=== PATIENT | female | born 1960 ===

== ENCOUNTER 2017-05-06 06:34 | Inpatient (IN) | payer BC ==
[~2017-05-06 06:34] MED LIST: Ketorolac 30 MG/ML SDV IVPUSH SCH; Scopolamine 1.5 MG Transdermal Patch TRDERM SCH; oxyCODONE ER 20 MG TAB.ER PO SCH
[2017-05-06] MEDS: Lactated Ringers 1,000 ML IV SCH ×2 (07:15→12:03)
[2017-05-06] MEDS ORDERED: Lidocaine 2% 5 ML SDV ONE (07:23)
[2017-05-06] MEDS ORDERED: Propofol 200 MG/20 ML SDV ONE ×2 (07:23→09:38)
[2017-05-06] MEDS ORDERED: fentaNYL 100 MCG/2 ML SDV ONE (07:24)
[2017-05-06] MEDS ORDERED: ePHEDrine 50 MG/ML SDV ONE (07:24)
[2017-05-06] MEDS ORDERED: Ondansetron 4 MG/2 ML SDV ONE ×2 (07:24→08:46)
[2017-05-06] MEDS ORDERED: Midazolam 1 MG/ML 2 ML SDV ONE (07:24)
[2017-05-06] MEDS: Acetaminophen 1,000 MG in Premix Bag 1 BAG IV SCH ×6 (07:30→18:35)
[2017-05-06] MEDS ORDERED: Famotidine 20 MG/2 ML SDV IVPUSH ONE (07:32)
[2017-05-06] MEDS ORDERED: oxyCODONE ER 10 MG TAB.ER PO ONE (07:33)
[2017-05-06] MEDS ORDERED: ceFAZolin 1 GM in Premix Bag 1 BAG IV SCH (08:00)
[2017-05-06] MEDS ORDERED: Ropivacaine 49.25 ML, Ketorolac 30 MG, EPINEPHrine 0.5 MG, cloNIDine 80 MCG in Sodium C... INJECT SCH ×2 (08:00→08:15)
[2017-05-06] MEDS ORDERED: Tranexamic Acid 4,000 MG in Sodium Chloride 0.9% 100 ML IV SCH (08:00)
--- NOTE | 2017-05-06 08:09 | PCM.PREANE ---
Preanesthetic Assessment - Procedure Proposed Procedure: Bilateral total knee arthroplasty - Anesthesia/Transfusion/Family Hx Anesthesia History: Prior Anesthesia Without Reaction Family History of Anesthesia Reaction: No Transfusion History: No Prior Transfusion(s) - Review of Systems General: No Symptoms Pulmonary: No Symptoms Cardiovascular: No Symptoms, Other (high cholesterol) Gastrointestinal: No Symptoms Neurological: Difficulty Walking (pain in both knees) Other: Reports: None - Physical Assessment NPO Status Date: 05/05/17 NPO Status Time: 22:00 Height: 5 ft 3 in Weight: 134 lb ASA Class: 2 Mental Status: Alert & Oriented x3 Airway Class: Mallampati = 2 Dentition: Reports: Normal Dentition, [place](s) Thyro-Mental Finger Breadths: 3 Mouth Opening Finger Breadths: 3 ROM/Head Extension: Full Lungs: Clear to Auscultation, Normal Respiratory Effort Cardiovascular: Regular Rate, Regular Rhythm, No Murmurs, Other (split S2) - Lab Values: Laboratory Last Values Blood Type B NEGATIVE 05/06/17 07:00 Antibody Screen NEGATIVE 05/06/17 07:00 - Allergies Allergies/Adverse Reactions: Allergies Allergy/AdvReac Type Severity Reaction Status Date / Time hydromorphone [From Dilaudid] Allergy Respiratory Verified 05/02/17 12:08 Distress morphine Allergy Respiratory Verified 05/02/17 12:08 Distress - Blood Blood Available: Yes Product(s) Available: PRBC (T and S) - Anesthesia Plan Free Text/Narrative:: known low tolerance for narcotics effects - Acknowledgements Anesthesia Type Planned: Spinal (possible LMA ) Pt an Appropriate Candidate for the Planned Anesthesia: Yes Alternatives and Risks of Anesthesia Discussed w Pt/Guardian: Yes Pt/Guardian Understands and Agrees with Anesthesia Plan: Yes PreAnesthesia Questionnaire Cardiovascular History: Reports: High Cholesterol Gastrointestinal History: Reports: None Genitourinary History: Reports: Renal Calculus Other Genitourinary History: passed SHIP BOAT OR BARGE MATE History: Reports: Endometriosis, Musculoskeletal History: Reports: Arthritis, Fracture Other Musculoskeletal History: hx of fx arm Dermatologic History: Reports: Eczema - Past Surgical History GI Surgical History: Reports: Appendectomy Female Surgical History: Reports: Hysterectomy, Other (See Below) Other Female Surgeries/Procedures: multiple laparoscopies for endometriosis and In-Vitro, Laparotomy, TVT - SUBSTANCE USE Smoking Status *Q: Never Smoker Recreational Drug Use History: No - HOME MEDS Home Medications: Home Meds Betamethasone Dipropionate [Diprosone 0.05% Crm] 1 dose TOP ASDIRECTED PRN 05/02 [History] Estradiol [Vivelle-Dot] 0.05 mg PO ASDIRECTED 05/02/17 [History] Rosuvastatin Calcium 10 mg PO DAILY 05/02/17 [History] - CURRENT (IN HOUSE) MEDS Current Meds: Current Medications Famotidine (Pepcid) 40 mg PO DAILY [facility] Acetaminophen 1,000 mg/ Premix 100 mls @ 400 mls/hr IV ONARRIVE DAVIDSON Cefazolin Sodium/Dextrose 1 gm (/ Premix) 50 mls @ 100 mls/hr IV ONCALL DAVIDSON Ropivacaine 49.25 ml/Ketorolac Tromethamine 30 mg/Epinephrine HCl 0.5 mg/ Clonidine HCl 80 mcg/ Sodium Chloride 100 mls @ 50 mls/min INJECT ASDIRECTED DAVIDSON Lactated Ringer's (Ringers, Lactated) 1,000 mls @ 100 mls/hr IV ASDIRECTED DAVIDSON Tranexamic Acid 4,000 mg/ (Sodium Chloride) 140 mls @ 600 mls/hr IV ASDIRECTED DAVIDSON Ropivacaine 49.25 ml/Ketorolac Tromethamine 30 mg/Epinephrine HCl 0.5 mg/ Clonidine HCl 80 mcg/ Sodium Chloride 100 mls @ 50 mls/min INJECT ASDIRECTED DAVIDSON Ketorolac Tromethamine (Toradol) 30 mg IVPUSH ONARRIVE DAVIDSON Oxycodone HCl (Oxycontin) 20 mg PO ONARRIVE DAVIDSON Scopolamine (Transderm-Scop) 1.5 mg TRDERM ONARRIVE [facility] Discontinued Medications Ephedrine Sulfate (Ephedrine Sulfate) Confirm Administered Dose 100 mg .ROUTE .STK-MED ONE Stop: 05/06/17 07:25 Famotidine (Pepcid) 40 mg IVPUSH ONETIME ONE Stop: 05/06/17 07:33 Fentanyl (Sublimaze) Confirm Administered Dose 200 mcg .ROUTE .STK-MED ONE Stop: 05/06/17 07:25 Lidocaine (Xylocaine-Mpf 2%) Confirm Administered Dose 10 ml .ROUTE .STK-MED ONE Stop: 05/06/17 07:24 Midazolam HCl (Versed 1 Mg/Ml) Confirm Administered Dose 2 mg .ROUTE .STK-MED ONE Stop: 05/06/17 07:25 Ondansetron HCl (Zofran) Confirm Administered Dose 4 mg .ROUTE .STK-MED ONE Stop: 05/06/17 07:25 Oxycodone HCl (Oxycontin) 10 mg PO ONETIME ONE Stop: 05/06/17 07:34 Propofol (Diprivan 20 Ml) Confirm Administered Dose 400 mg .ROUTE .STK-MED ONE Stop: 05/06/17 07:24 Tranexamic Acid (Cyklokapron) Confirm Administered Dose 4,000 mg .ROUTE .STK- MED ONE Stop: 05/06/17 07:36
[2017-05-06] MEDS ORDERED: fentaNYL 100 MCG/2 ML SDV IVPUSH PRN (09:21)
[2017-05-06] MEDS ORDERED: diphenhydrAMINE 25 MG Cap PO PRN (10:37)
[2017-05-06] MEDS ORDERED: Bisacodyl 10 MG Supp RECTAL PRN (10:37)
[2017-05-06] MEDS ORDERED: Aluminum Hydroxide/Magnesium Hydroxide/Simethicone Susp 30 ML Cup PO PRN (10:37)
[2017-05-06] MEDS ORDERED: traMADol 50 MG Tab PO PRN (10:37)
[2017-05-06] MEDS ORDERED: Ondansetron 4 MG/2 ML SDV IV PRN (10:37)
[2017-05-06] MEDS ORDERED: oxyCODONE 5 MG Tab PO PRN (10:37)
[2017-05-06] MEDS ORDERED: ESTRADIOL 0.05 MG PO SCH (10:45)
--- NOTE | 2017-05-06 10:59 | PCM.OPNOTE ---
- General Post-Op/Procedure Note Date of Surgery/Procedure: 05/06/17 Operative Procedure(s): B TKA Post-Op Diagnosis: B knee DJD Anesthesia Technique: Moderate Sedation, Spinal Primary Surgeon: Ruth Bob Paper Wood Cutter: Laverne Freeman Paper Wood Cutter: Lissy Montoya EBL in mLs: 100 Condition: Good Free Text/Narrative:: tt=37 min L, 42 min R #[id number] Intake & Output 05/05/17 05/06/17 05/06/17 22:59 06:59 14:59 Output Total 800 Balance -800
--- NOTE | 2017-05-06 11:22 | PCM.POSTAN ---
POST ANESTHESIA ASSESSMENT - MENTAL STATUS Mental Status: Alert, Oriented - RESPIRATORY Respiratory Status: Respiratory Rate WNL, Airway Patent, O2 Saturation Stable, Supplemental Oxygen Free Text/Narrative:: nasal canula - CARDIOVASCULAR CV Status: Pulse Rate WNL, Blood Pressure Stable - GASTROINTESTINAL GI Status: No Symptoms - PAIN Pain Score: 0 - POST OP HYDRATION Hydration Status: Adequate & Stable
[2017-05-06] MEDS: Famotidine 20 MG Tab PO SCH (11:55)
--- NOTE | 2017-05-06 13:12 | OR ---
SURGEON: Ruth Bob MD DATE OF PROCEDURE: 05/06/2017 PREOPERATIVE DIAGNOSIS: Bilateral knee osteoarthritis, tricompartmental. POSTOPERATIVE DIAGNOSIS: Bilateral knee osteoarthritis, tricompartmental. PROCEDURE: Bilateral total knee arthroplasty using patient specific instrumentation. ARMAMENT MECHANIC: SOPHIA Watson and Lissy Montoya PA-C. ANESTHESIA: Spinal with sedation. ESTIMATED BLOOD LOSS: 100 mL. TOURNIQUET TIME: 37 minutes on the left and 42 minutes on the right. COMPLICATIONS: None. DVT PROPHYLAXIS: None. IMPLANTS USED: Jennifer Persona femoral component, size 4, standard (LPS) bilaterally, tibial component size D on the right and size C on the left, 32 mm all-polyethylene patella bilaterally, 10 mm all-polyethylene articular surface on the right, and 12 mm all-polyethylene articular surface on the left. INTRAOPERATIVE FINDINGS: Showed evidence of tricompartmental degenerative changes, which were most severe along the medial compartment and patellofemoral compartment with grade 4 chondromalacia. The lateral compartment showed evidence of grade 3 chondromalacia diffusely. No significant synovitis was noted. BRIEF HISTORY: Bianca is a 56-year-old female, who has had complaint of progressive bilateral knee pain. She had failed conservative treatment. Due to her lack of response to conservative treatment, it was recommended that she undergo a surgical treatment. The risks and goals of procedure were discussed with the patient and were documented preoperatively. She agreed to proceed. DESCRIPTION OF PROCEDURE: The patient was properly identified and brought to the operating room. The patient was then transferred from the operating room cart and placed on the operating table in a supine position. Anesthesia was administered by the anesthesia staff. After adequate anesthesia was obtained, a well-padded tourniquet was applied to the surgical lower extremity. De Guzman catheter was placed. The lower extremity was then prepped in standard fashion using ChloraPrep solution. It was then sterilely draped. A time-out was performed to ensure correct site and procedure. Preoperative antibiotics were given along with one gram of tranexamic acid IV. The surgical site was not marked preoperatively as the procedure was bilateral. An Esmarch was used to exsanguinate the left lower extremity and the tourniquet was inflated. An incision was made over the anterior aspect of the knee. The subcutaneous tissues were dissected down to the level of the fascia. A medial parapatellar approach to the knee was made. A portion of the infrapatellar fat pad was then excised. The distal femur was then exposed. The femoral patient-specific cutting guide was then placed. Pins were also placed. The distal femoral cutting block was placed and the distal femoral cut was made. Instrumentation was then removed. Both Whitesides' line and the epicondylar axis were then marked with electrocautery. The 4-in-1 cutting block was placed. This was placed in a slightly externally rotated position, which corresponded well with the previously drawn lines. The cutting guide was then pinned into position. An Imer wing guide was used to check the depth of resection of our anterior condylar cut and it was felt that no notching would occur. The anterior condylar cut was then made followed by the posterior condylar cut. Both the posterior chamfer and anterior chamfer cuts were then made. The cutting block was then removed along with the excess bony remnants. We then turned our attention to the tibia. The anterior cruciate ligament and posterior cruciate ligament were released and a posterior cruciate ligament retractor was placed to allow the tibia to be pulled anteriorly. The tibial patient-specific guide was then placed on the proximal tibia. This fit anatomically. The pins were then placed. The proximal tibia cutting guide was then placed and screwed into position. The proximal tibial resection was then made with care being taken to protect the patellar tendon. The bony resection was then removed. The remainder of the medial and lateral meniscus were then excised. Care was taken to protect the popliteus tendon. The tibia was then sized to the appropriate size. The distal femur was then elevated. The posterior capsule was stripped off the distal femur both medially and laterally. The posterior capsule along with the medial and lateral gutters were then injected with a standard mixture consisting of clonidine, epinephrine, Toradol, and Ropivacaine, unless any allergies were found preoperatively. The femoral component was then placed onto the distal femur in a slightly lateral position. This fit the femur well. A box cut was then made without difficulty. This was then removed. The tibial trial along with the polyethylene liner was then placed. The knee came easily into full extension and was stable to varus and valgus stressing both in full extension and flexion. Any additional releases were performed at this time. We then returned our attention to the patella. The patella was everted and towel clamps were used to hold the patella in position. It was resected to a 15 millimeter thickness. It was then sized to the appropriate size. It was prepared in the usual fashion after placing the predetermined size clamps. This was placed in a slightly superior and medial position. The clamp was then removed. The patellar trial button was placed. The knee was taken through a range of motion using the no-touch technique. The patella tracked centrally. A drop rafael was then placed to check alignment. All instruments were then removed from the knee. The tibial sizer was then placed on the tibia. The tibia was prepared in the usual fashion using the reamer and broach. This was then removed. All bony surfaces were copiously irrigated with Pulsavac solution. They were then suctioned dry. Cement was prepared on the back table in the usual manner. Once it was prepared, the bone ends were again suctioned dry. The tibia was cemented into place first. This was malleted into position. Excess cement was then cleared. The femur was then placed in a similar manner. We placed the polyethylene trial into place and the knee was brought into full extension. An axial load was placed while keeping the knee in full extension. The patella button was also cemented into position and the clamp was used to hold this in place as the cement was allowed to cure. The wound was again copiously irrigated with saline solution using a Pulsavac post tensioning ironworker. Following this 1 g of tranexamic acid was applied to the wound topically. After we had adequate curing of the cement, the knee was again taken through a range of motion. The size of the polyethylene was then determined. The polyethylene trial was then removed. The tibial tray was suctioned to make sure there was no remaining soft tissue or cement. Excess cement was cleared from around the edges of the prosthesis as well. The tourniquet was then deflated. We were able to observe for any excess bleeding and none was noted. Electrocautery was used to maintain hemostasis. The retractors were again placed and the predetermined polyethylene was then placed. This was locked into position without difficulty. The knee was again taken through a range of motion with no change from the prior exam. The fascial layer was closed with Number One Vicryl. The subcutaneous tissues were closed with 2-0 Vicryl. The skin was closed with lourdes. Xeroform gauze was placed over the wound and a bulky dressing was applied. All needle and sponge counts were correct. Right knee: An Esmarch was used to exsanguinate the right lower extremity and the tourniquet was inflated. An incision was made over the anterior aspect of the knee. The subcutaneous tissues were dissected down to the level of the fascia. A medial parapatellar approach to the knee was made. A portion of the infrapatellar fat pad was then excised. The distal femur was then exposed. The femoral patient-specific cutting guide was then placed. Pins were also placed. The distal femoral cutting block was placed and the distal femoral cut was made. Instrumentation was then removed. Both Whitesides' line and the epicondylar axis were then marked with electrocautery. The 4-in-1 cutting block was placed. This was placed in a slightly externally rotated position, which corresponded well with the previously drawn lines. The cutting guide was then pinned into position. An Imer wing guide was used to check the depth of resection of our anterior condylar cut and it was felt that no notching would occur. The anterior condylar cut was then made followed by the posterior condylar cut. Both the posterior chamfer and anterior chamfer cuts were then made. The cutting block was then removed along with the excess bony remnants. We then turned our attention to the tibia. The anterior cruciate ligament and posterior cruciate ligament were released and a posterior cruciate ligament retractor was placed to allow the tibia to be pulled anteriorly. The tibial patient-specific guide was then placed on the proximal tibia. This fit anatomically. The pins were then placed. The proximal tibia cutting guide was then placed and screwed into position. The proximal tibial resection was then made with care being taken to protect the patellar tendon. The bony resection was then removed. The remainder of the medial and lateral meniscus were then excised. Care was taken to protect the popliteus tendon. The tibia was then sized to the appropriate size. The distal femur was then elevated. The posterior capsule was stripped off the distal femur both medially and laterally. The posterior capsule along with the medial and lateral gutters were then injected with a standard mixture consisting of clonidine, epinephrine, Toradol, and Ropivacaine, unless any allergies were found preoperatively. The femoral component was then placed onto the distal femur in a slightly lateral position. This fit the femur well. A box cut was then made without difficulty. This was then removed. The tibial trial along with the polyethylene liner was then placed. The knee came easily into full extension and was stable to varus and valgus stressing both in full extension and flexion. Any additional releases were performed at this time. We then returned our attention to the patella. The patella was everted and towel clamps were used to hold the patella in position. It was resected to a 15 millimeter thickness. It was then sized to the appropriate size. It was prepared in the usual fashion after placing the predetermined size clamps. This was placed in a slightly superior and medial position. The clamp was then removed. The patellar trial button was placed. The knee was taken through a range of motion using the no-touch technique. The patella tracked centrally. A drop rafael was then placed to check alignment. All instruments were then removed from the knee. The tibial sizer was then placed on the tibia. The tibia was prepared in the usual fashion using the reamer and broach. This was then removed. All bony surfaces were copiously irrigated with Pulsavac solution. They were then suctioned dry. Cement was prepared on the back table in the usual manner. Once it was prepared, the bone ends were again suctioned dry. The tibia was cemented into place first. This was malleted into position. Excess cement was then cleared. The femur was then placed in a similar manner. We placed the polyethylene trial into place and the knee was brought into full extension. An axial load was placed while keeping the knee in full extension. The patella button was also cemented into position and the clamp was used to hold this in place as the cement was allowed to cure. The wound was again copiously irrigated with saline solution using a Pulsavac post tensioning ironworker. Following this 1 g of tranexamic acid was applied to the wound topically. After we had adequate curing of the cement, the knee was again taken through a range of motion. The size of the polyethylene was then determined. The polyethylene trial was then removed. The tibial tray was suctioned to make sure there was no remaining soft tissue or cement. Excess cement was cleared from around the edges of the prosthesis as well. The tourniquet was then deflated. We were able to observe for any excess bleeding and none was noted. Electrocautery was used to maintain hemostasis. An additional gram of tranexamic acid was given IV. The retractors were again placed and the predetermined polyethylene was then placed. This was locked into position without difficulty. The knee was again taken through a range of motion with no change from the prior exam. The fascial layer was closed with Number One Vicryl. The subcutaneous tissues were closed with 2-0 Vicryl. The skin was closed with lourdes. Xeroform gauze was placed over the wound and a bulky dressing was applied. The patient was then awakened from anesthesia and transferred back to the operating room cart. They were brought to the recovery room in stable condition. All needle and sponge counts were correct. RYAN / LESTER /[id number] MTDD
--- NOTE | 2017-05-06 14:38 | CR ---
EXAMINATION: Bilateral knees HISTORY: Knee replacement COMPARISON: 03/19/2017 TECHNIQUE: 2 views bilaterally FINDINGS/IMPRESSION: Bilateral total knee replacement hardware noted. Operative soft tissue changes a lso noted bilaterally.
[2017-05-06] MEDS: ceFAZolin 1 GM in Premix Bag 1 BAG IV SCH (16:22)
[2017-05-06] MEDS: Ketorolac 30 MG/ML SDV IVPUSH SCH ×2 (16:23→22:04)
[2017-05-06] MEDS ORDERED: Sodium Chloride 0.9% 10 ML Syringe FLUSH PRN (18:55)
[2017-05-06] MEDS ORDERED: Sodium Chloride 0.9% 2.5 ML Syringe FLUSH PRN (18:55)
[2017-05-06] MEDS ORDERED: oxyCODONE ER 10 MG TAB.ER PO SCH (21:00)
[2017-05-06] MEDS: Docusate Sodium 100 MG Cap PO SCH (22:03)
[2017-05-07] MEDS: Acetaminophen 500 MG Tab PO SCH ×3 (00:31→14:28)
[2017-05-07] MEDS: ceFAZolin 1 GM in Premix Bag 1 BAG IV SCH (00:33)
[2017-05-07] MEDS: Ketorolac 30 MG/ML SDV IVPUSH SCH (04:23)
--- NOTE | 2017-05-07 07:49 | PCM48HPAN ---
Post Anesthesia Note - EVALUATION WITHIN 48HRS OF ANESTHETIC Vital Signs in Normal Range: Yes Patient Participated in Evaluation: Yes Respiratory Function Stable: Yes Airway Patent: Yes Cardiovascular Function Stable: Yes Hydration Status Stable: Yes Pain Control Satisfactory: Yes Nausea and Vomiting Control Satisfactory: Yes Mental Status Recovered: Yes - COMMENTS/OBSERVATIONS Free Text/Narrative:: Pt doing well this AM with reports of pain being well controlled thru the night and no symptoms of nausea postop. Pt did say that she received Oxycontin last night and felt that it made her so relaxed that she was not breathing effectively. Pt is currently on low dose oxygen and sat monitoring and stable.
--- NOTE | 2017-05-07 08:13 | PCM.SURGPN ---
<Laverne Freeman R - Last Filed: 05/07/17 08:08> - General Info Date of Service: 05/07/17 Date of Surgery/Procedure: 05/06/17 POD#: 1 Functional Status: Reports: Pain Controlled, Tolerating Diet, Ambulating - Review of Systems General: Reports: No Symptoms Pulmonary: Reports: No Symptoms Cardiovascular: Reports: No Symptoms Gastrointestinal: Reports: No Symptoms Musculoskeletal: Reports: Leg Pain Systems Review Comment:: pt resting comfortably in bed supplemental O2 via NC states pain controlled with tylenol and ultram has not used oxycodone. had some respiratory depression overnight so would like to discontinue oxycontin 10mg no nausea/vomiting was OOB ambulating yesterday IV fluids were stopped last night would like to go home today - Patient Data Vitals - Most Recent: Last Vital Signs Temp 97.9 F 05/07/17 07:28 Pulse 57 L 05/07/17 04:00 Resp 16 05/07/17 07:28 BP 87/52 L 05/07/17 07:28 Pulse Ox 98 05/07/17 07:28 Weight - Most Recent: 60.781 kg I&O - Last 24 Hours: Intake & Output 05/06/17 05/07/17 05/07/17 22:59 06:59 14:59 Intake Total 800 550 Output Total 400 1350 Balance 400 -800 Lab Results Last 24 Hrs: Laboratory Results - last 24 hr 05/07/17 Range/Units 05:39 Hgb 11.3 L (12.0-16.0) g/dL Hct 34.9 L (36.0-46.0) % Med Orders - Current: Current Medications Acetaminophen (Tylenol Extra Strength) 1,000 mg PO Q6H [facility] Last Admin: 05/07/17 07:57 Dose: 1,000 mg Al Hydroxide/Mg Hydroxide (Mag-Al Plus) 30 ml PO Q4H PRN PRN Reason: indigestion Aspirin (Aspirin) 325 mg PO BID [facility] Bisacodyl (Dulcolax) 10 mg RECTAL DAILY PRN PRN Reason: Constipation Celecoxib (Celebrex) 200 mg PO BID [facility] Diphenhydramine HCl (Benadryl) 25 - 50 mg PO Q6H PRN PRN Reason: Itching Docusate Sodium (Colace) 100 mg PO BID [facility] Last Admin: 05/06/17 22:03 Dose: 100 mg Famotidine (Pepcid) 40 mg PO DAILY [facility] Fentanyl (Sublimaze) 50 mcg IVPUSH Q5M PRN PRN Reason: Pain (severe 7-10) Stop: 05/07/17 09:21 Acetaminophen 1,000 mg/ Premix 100 mls @ 400 mls/hr IV ONARRIVE [facility] Last Admin: 05/06/17 07:30 Dose: 400 mls/hr Cefazolin Sodium/Dextrose 1 gm (/ Premix) 50 mls @ 100 mls/hr IV ONCALL [facility] Tranexamic Acid 4,000 mg/ (Sodium Chloride) 140 mls @ 600 mls/hr IV ASDIRECTED [facility] Ketorolac Tromethamine (Toradol) 30 mg IVPUSH ONARRIVE [facility] Ketorolac Tromethamine (Toradol) 30 mg IVPUSH Q6H [facility] Stop: 05/07/17 09:00 Last Admin: 05/07/17 04:23 Dose: 30 mg Ondansetron HCl (Zofran) 4 mg IV Q6HR PRN PRN Reason: NAUSEA/VOMITING Oxycodone HCl (Oxycodone) 5 - 10 mg PO Q4H PRN PRN Reason: Pain Oxycodone HCl (Oxycontin) 10 mg PO Q12HR [facility] Last Admin: 05/06/17 22:03 Dose: 10 mg Estradiol 0.05 Mg 1 each PO ASDIRECTED [facility] Rosuvastatin Calcium (Crestor) 10 mg PO DAILY [facility] Scopolamine (Transderm-Scop) 1.5 mg TRDERM ONARRIVE [facility] Last Admin: 05/06/17 08:20 Dose: 1.5 mg Sodium Chloride (Saline Flush) 10 ml FLUSH ASDIRECTED PRN PRN Reason: Keep Vein Open Sodium Chloride (Saline Flush) 2.5 ml FLUSH ASDIRECTED PRN PRN Reason: Keep Vein Open Tramadol HCl (Ultram) 50 - 100 mg PO Q6H PRN PRN Reason: Pain Discontinued Medications Ephedrine Sulfate (Ephedrine Sulfate) Confirm Administered Dose 100 mg .ROUTE .STK-MED ONE Stop: 05/06/17 07:25 Famotidine (Pepcid) 40 mg PO DAILY [facility] Last Admin: 05/06/17 11:55 Dose: Not Given Famotidine (Pepcid) 40 mg IVPUSH ONETIME ONE Stop: 05/06/17 07:33 Last Admin: 05/06/17 07:30 Dose: 40 mg Fentanyl (Sublimaze) Confirm Administered Dose 200 mcg .ROUTE .STK-MED ONE Stop: 05/06/17 07:25 Ropivacaine 49.25 ml/Ketorolac Tromethamine 30 mg/Epinephrine HCl 0.5 mg/ Clonidine HCl 80 mcg/ Sodium Chloride 100 mls @ 50 mls/min INJECT ASDIRECTED [facility] Lactated Ringer's (Ringers, Lactated) 1,000 mls @ 100 mls/hr IV ASDIRECTED [facility] Last Admin: 05/06/17 12:03 Dose: 100 mls/hr Ropivacaine 49.25 ml/Ketorolac Tromethamine 30 mg/Epinephrine HCl 0.5 mg/ Clonidine HCl 80 mcg/ Sodium Chloride 100 mls @ 50 mls/min INJECT ASDIRECTED [facility] Acetaminophen 1,000 mg/ Premix 100 mls @ 400 mls/hr IV Q6H [facility] Stop: 05/06/17 19:44 Last Admin: 05/06/17 18:35 Dose: 400 mls/hr Cefazolin Sodium/Dextrose 1 gm (/ Premix) 50 mls @ 100 mls/hr IV Q8H [facility] Stop: 05/07/17 00:29 Last Admin: 05/07/17 00:33 Dose: 100 mls/hr Lidocaine (Xylocaine-Mpf 2%) Confirm Administered Dose 10 ml .ROUTE .STK-MED ONE Stop: 05/06/17 07:24 Midazolam HCl (Versed 1 Mg/Ml) Confirm Administered Dose 2 mg .ROUTE .STK-MED ONE Stop: 05/06/17 07:25 Ondansetron HCl (Zofran) Confirm Administered Dose 4 mg .ROUTE .STK-MED ONE Stop: 05/06/17 07:25 Ondansetron HCl (Zofran) Confirm Administered Dose 4 mg .ROUTE .STK-MED ONE Stop: 05/06/17 08:47 Oxycodone HCl (Oxycontin) 20 mg PO ONARRIVE [facility] Oxycodone HCl (Oxycontin) 10 mg PO ONETIME ONE Stop: 05/06/17 07:34 Last Admin: 05/06/17 07:45 Dose: 10 mg Propofol (Diprivan 20 Ml) Confirm Administered Dose 400 mg .ROUTE .STK-MED ONE Stop: 05/06/17 07:24 Propofol (Diprivan 20 Ml) Confirm Administered Dose 200 mg .ROUTE .STK-MED ONE Stop: 05/06/17 09:39 Tranexamic Acid (Cyklokapron) Confirm Administered Dose 4,000 mg .ROUTE .STK- MED ONE Stop: 05/06/17 07:36 Tranexamic Acid (Cyklokapron) Confirm Administered Dose 2,000 mg .ROUTE .STK- MED ONE Stop: 05/06/17 11:29 - Exam Wound/Incisions: Dressing Dry and Intact. No: No Drainage Quality Assessment: Supplemental Oxygen General: Alert, Oriented Lungs: Rhonchi Cardiovascular: Regular Rate Extremities: Other (exam BLE reveals dressings to be clean/dry/intact. polar care in place. minimal edema. at/ehl/gastroc 5/5, dp 2+, sensation intact distally. ) Physical Findings Comment:: vss, afeb uo 2000mL+ hgb 11.3 - Problem List Review Problem List Initiated/Reviewed/Updated: Yes - My Orders Last 24 Hours: Active Orders 24 hr Category Date Time Status Patient Status [ADT] Routine ADT 05/06/17 10:56 Active Activity as Tolerated [RC] .Routine Care 05/06/17 10:36 Active Dressing Change [Wound Care] [RC] Q12H Care 05/06/17 10:36 Active Insert Urinary Catheter [OM.PC] Routine Care 05/06/17 08:00 Ordered Intake and Output [RC] ASDIRECTED Care 05/06/17 10:36 Active Neurovascular Check [RC] Q2HR Care 05/06/17 10:36 Active Notify Provider Vital Signs [RC] ASDIRECTED Care 05/06/17 10:36 Active RT Incentive Spirometry [RC] ASDIRECTED Care 05/06/17 10:36 Active Remove Ivan Catheter [Urinary Catheter Removal] [RC] Care 05/07/17 08:08 Ordered Per Unit Routine Vital Signs [RC] Q4H Care 05/06/17 10:36 Active PT Evaluation and Treatment [CONS] Routine Cons 05/06/17 10:36 Active HEMOGLOBIN/HEMATOCRIT,HH [HEME] DAILY Lab 05/08/17 06:00 Ordered HEMOGLOBIN/HEMATOCRIT,HH [HEME] DAILY Lab 05/09/17 06:00 Ordered Acetaminophen [Tylenol Extra Strength] Med 05/07/17 01:30 Active 1,000 mg PO Q6H Alum Hydrox/Mag Hydrox/Simeth [Mag-Al Plus] Med 05/06/17 10:37 Active 30 ml PO Q4H PRN Aspirin Med 05/07/17 09:00 Active 325 mg PO BID Bisacodyl [Dulcolax] Med 05/06/17 10:37 Active 10 mg RECTAL DAILY PRN Celecoxib [CeleBREX] Med 05/07/17 09:00 Active 200 mg PO BID Docusate Sodium [Colace] Med 05/06/17 21:00 Active 100 mg PO BID Famotidine [Pepcid] Med 05/07/17 09:00 Active 40 mg PO DAILY Ketorolac [Toradol] Med 05/06/17 16:00 Active 30 mg IVPUSH Q6H Ondansetron [Zofran] Med 05/06/17 10:37 Active 4 mg IV Q6HR PRN Patient's Own Medication [Ptom] Med 05/06/17 10:45 Active 1 each PO ASDIRECTED Rosuvastatin [Crestor] Med 05/07/17 09:00 Active 10 mg PO DAILY Sodium Chloride 0.9% [Saline Flush] Med 05/06/17 18:55 Active 10 ml FLUSH ASDIRECTED PRN Sodium Chloride 0.9% [Saline Flush] Med 05/06/17 18:55 Active 2.5 ml FLUSH ASDIRECTED PRN Tranexamic Acid [Cyklokapron] 4,000 mg Med 05/06/17 08:00 Active Sodium Chloride 0.9% [Normal Saline] 100 ml IV ASDIRECTED ceFAZolin [Ancef] 1 gm Med 05/06/17 08:00 Active Premix Bag 1 bag IV ONCALL diphenhydrAMINE [Benadryl] Med 05/06/17 10:37 Active 25 - 50 mg PO Q6H PRN fentaNYL [Sublimaze] Med 05/06/17 09:21 Active 50 mcg IVPUSH Q5M PRN oxyCODONE Med 05/06/17 10:37 Active 5 - 10 mg PO Q4H PRN oxyCODONE ER [OxyCONTIN] Med 05/06/17 21:00 Stop Req 10 mg PO Q12HR traMADol [Ultram] Med 05/06/17 10:37 Active 50 - 100 mg PO Q6H PRN Convert IV to Saline Lock [OM.PC] Routine Oth 05/06/17 18:55 Ordered Ice Therapy [OM.PC] Routine Oth 05/06/17 10:36 Ordered Medication Orders Acetaminophen (Tylenol Extra Strength) 1,000 mg PO Q6H [facility] Last Admin: 05/07/17 07:57 Dose: 1,000 mg Admin: 05/07/17 00:31 Dose: 1,000 mg Al Hydroxide/Mg Hydroxide (Mag-Al Plus) 30 ml PO Q4H PRN PRN Reason: indigestion Aspirin (Aspirin) 325 mg PO BID [facility] Bisacodyl (Dulcolax) 10 mg RECTAL DAILY PRN PRN Reason: Constipation Celecoxib (Celebrex) 200 mg PO BID [facility] Diphenhydramine HCl (Benadryl) 25 - 50 mg PO Q6H PRN PRN Reason: Itching Docusate Sodium (Colace) 100 mg PO BID [facility] Last Admin: 05/06/17 22:03 Dose: 100 mg Famotidine (Pepcid) 40 mg PO DAILY [facility] Fentanyl (Sublimaze) 50 mcg IVPUSH Q5M PRN PRN Reason: Pain (severe 7-10) Stop: 05/07/17 09:21 Acetaminophen 1,000 mg/ Premix 100 mls @ 400 mls/hr IV ONARRIVE [facility] Last Admin: 05/06/17 07:30 Dose: 400 mls/hr Cefazolin Sodium/Dextrose 1 gm (/ Premix) 50 mls @ 100 mls/hr IV ONCALL [facility] Tranexamic Acid 4,000 mg/ (Sodium Chloride) 140 mls @ 600 mls/hr IV ASDIRECTED [facility] Ketorolac Tromethamine (Toradol) 30 mg IVPUSH ONARRIVE [facility] Ketorolac Tromethamine (Toradol) 30 mg IVPUSH Q6H [facility] Stop: 05/07/17 09:00 Last Admin: 05/07/17 04:23 Dose: 30 mg Admin: 05/06/17 22:04 Dose: 30 mg Admin: 05/06/17 16:23 Dose: 30 mg Ondansetron HCl (Zofran) 4 mg IV Q6HR PRN PRN Reason: NAUSEA/VOMITING Oxycodone HCl (Oxycodone) 5 - 10 mg PO Q4H PRN PRN Reason: Pain Oxycodone HCl (Oxycontin) 10 mg PO Q12HR [facility] Last Admin: 05/06/17 22:03 Dose: 10 mg Estradiol 0.05 Mg 1 each PO ASDIRECTED [facility] Rosuvastatin Calcium (Crestor) 10 mg PO DAILY [facility] Scopolamine (Transderm-Scop) 1.5 mg TRDERM ONARRIVE [facility] Last Admin: 05/06/17 08:20 Dose: 1.5 mg Sodium Chloride (Saline Flush) 10 ml FLUSH ASDIRECTED PRN PRN Reason: Keep Vein Open Sodium Chloride (Saline Flush) 2.5 ml FLUSH ASDIRECTED PRN PRN Reason: Keep Vein Open Tramadol HCl (Ultram) 50 - 100 mg PO Q6H PRN PRN Reason: Pain - Assessment Assessment (Free Text/Narrative):: POD#1 B TKA acute posthemorrhagic anemia - Plan Plan (Free Text/Narrative):: DC ivan IV fluids stopped last night DC oxycontin - do not send rx home with patient PT today dressing change to B knees prior to d/ch to home ASA 325mg PO BID as DVT prophylaxis <Ruth Bob - Last Filed: 05/07/17 14:05> - Patient Data Vitals - Most Recent: Last Vital Signs Temp 97.7 F 05/07/17 11:35 Pulse 57 L 05/07/17 04:00 Resp 18 05/07/17 11:35 BP 90/46 L 05/07/17 11:35 Pulse Ox 95 05/07/17 11:35 I&O - Last 24 Hours: Intake & Output 05/06/17 05/07/17 05/07/17 22:59 06:59 14:59 Intake Total 800 550 Output Total 400 1350 Balance 400 -800 Lab Results Last 24 Hrs: Laboratory Results - last 24 hr 05/07/17 Range/Units 05:39 Hgb 11.3 L (12.0-16.0) g/dL Hct 34.9 L (36.0-46.0) % Med Orders - Current: Current Medications Acetaminophen (Tylenol Extra Strength) 1,000 mg PO Q6H [facility] Last Admin: 05/07/17 07:57 Dose: 1,000 mg Al Hydroxide/Mg Hydroxide (Mag-Al Plus) 30 ml PO Q4H PRN PRN Reason: indigestion Aspirin (Aspirin) 325 mg PO BID [facility] Last Admin: 05/07/17 09:54 Dose: 325 mg Bisacodyl (Dulcolax) 10 mg RECTAL DAILY PRN PRN Reason: Constipation Celecoxib (Celebrex) 200 mg PO BID [facility] Last Admin: 05/07/17 09:54 Dose: 200 mg Diphenhydramine HCl (Benadryl) 25 - 50 mg PO Q6H PRN PRN Reason: Itching Docusate Sodium (Colace) 100 mg PO BID [facility] Last Admin: 05/07/17 09:55 Dose: 100 mg Famotidine (Pepcid) 40 mg PO DAILY [facility] Last Admin: 05/07/17 09:57 Dose: 40 mg Acetaminophen 1,000 mg/ Premix 100 mls @ 400 mls/hr IV ONARRIVE [facility] Last Admin: 05/06/17 07:30 Dose: 400 mls/hr Cefazolin Sodium/Dextrose 1 gm (/ Premix) 50 mls @ 100 mls/hr IV ONCALL [facility] Tranexamic Acid 4,000 mg/ (Sodium Chloride) 140 mls @ 600 mls/hr IV ASDIRECTED [facility] Ketorolac Tromethamine (Toradol) 30 mg IVPUSH ONARRIVE [facility] Ondansetron HCl (Zofran) 4 mg IV Q6HR PRN PRN Reason: NAUSEA/VOMITING Oxycodone HCl (Oxycodone) 5 - 10 mg PO Q4H PRN PRN Reason: Pain Estradiol 0.05 Mg 1 each PO ASDIRECTED [facility] Rosuvastatin Calcium (Crestor) 10 mg PO DAILY [facility] Last Admin: 05/07/17 09:57 Dose: 10 mg Scopolamine (Transderm-Scop) 1.5 mg TRDERM ONARRIVE [facility] Last Admin: 05/06/17 08:20 Dose: 1.5 mg Sodium Chloride (Saline Flush) 10 ml FLUSH ASDIRECTED PRN PRN Reason: Keep Vein Open Sodium Chloride (Saline Flush) 2.5 ml FLUSH ASDIRECTED PRN PRN Reason: Keep Vein Open Tramadol HCl (Ultram) 50 - 100 mg PO Q6H PRN PRN Reason: Pain Last Admin: 05/07/17 09:58 Dose: 50 mg Discontinued Medications Ephedrine Sulfate (Ephedrine Sulfate) Confirm Administered Dose 100 mg .ROUTE .STK-MED ONE Stop: 05/06/17 07:25 Famotidine (Pepcid) 40 mg PO DAILY [facility] Last Admin: 05/06/17 11:55 Dose: Not Given Famotidine (Pepcid) 40 mg IVPUSH ONETIME ONE Stop: 05/06/17 07:33 Last Admin: 05/06/17 07:30 Dose: 40 mg Fentanyl (Sublimaze) Confirm Administered Dose 200 mcg .ROUTE .STK-MED ONE Stop: 05/06/17 07:25 Fentanyl (Sublimaze) 50 mcg IVPUSH Q5M PRN PRN Reason: Pain (severe 7-10) Stop: 05/07/17 09:21 Ropivacaine 49.25 ml/Ketorolac Tromethamine 30 mg/Epinephrine HCl 0.5 mg/ Clonidine HCl 80 mcg/ Sodium Chloride 100 mls @ 50 mls/min INJECT ASDIRECTED [facility] Lactated Ringer's (Ringers, Lactated) 1,000 mls @ 100 mls/hr IV ASDIRECTED [facility] Last Admin: 05/06/17 12:03 Dose: 100 mls/hr Ropivacaine 49.25 ml/Ketorolac Tromethamine 30 mg/Epinephrine HCl 0.5 mg/ Clonidine HCl 80 mcg/ Sodium Chloride 100 mls @ 50 mls/min INJECT ASDIRECTED [facility] Acetaminophen 1,000 mg/ Premix 100 mls @ 400 mls/hr IV Q6H [facility] Stop: 05/06/17 19:44 Last Admin: 05/06/17 18:35 Dose: 400 mls/hr Cefazolin Sodium/Dextrose 1 gm (/ Premix) 50 mls @ 100 mls/hr IV Q8H [facility] Stop: 05/07/17 00:29 Last Admin: 05/07/17 00:33 Dose: 100 mls/hr Ketorolac Tromethamine (Toradol) 30 mg IVPUSH Q6H [facility] Stop: 05/07/17 09:00 Last Admin: 05/07/17 04:23 Dose: 30 mg Lidocaine (Xylocaine-Mpf 2%) Confirm Administered Dose 10 ml .ROUTE .STK-MED ONE Stop: 05/06/17 07:24 Midazolam HCl (Versed 1 Mg/Ml) Confirm Administered Dose 2 mg .ROUTE .STK-MED ONE Stop: 05/06/17 07:25 Ondansetron HCl (Zofran) Confirm Administered Dose 4 mg .ROUTE .STK-MED ONE Stop: 05/06/17 07:25 Ondansetron HCl (Zofran) Confirm Administered Dose 4 mg .ROUTE .STK-MED ONE Stop: 05/06/17 08:47 Oxycodone HCl (Oxycontin) 20 mg PO ONARRIVE [facility] Oxycodone HCl (Oxycontin) 10 mg PO ONETIME ONE Stop: 05/06/17 07:34 Last Admin: 05/06/17 07:45 Dose: 10 mg Oxycodone HCl (Oxycontin) 10 mg PO Q12HR [facility] Last Admin: 05/06/17 22:03 Dose: 10 mg Propofol (Diprivan 20 Ml) Confirm Administered Dose 400 mg .ROUTE .STK-MED ONE Stop: 05/06/17 07:24 Propofol (Diprivan 20 Ml) Confirm Administered Dose 200 mg .ROUTE .STK-MED ONE Stop: 05/06/17 09:39 Tranexamic Acid (Cyklokapron) Confirm Administered Dose 4,000 mg .ROUTE .STK- MED ONE Stop: 05/06/17 07:36 Tranexamic Acid (Cyklokapron) Confirm Administered Dose 2,000 mg .ROUTE .STK- MED ONE Stop: 05/06/17 11:29 - My Orders Last 24 Hours: Active Orders 24 hr Category Date Time Status Ready for Discharge [RC] PER UNIT ROUTINE Care 05/07/17 08:20 Active Remove Ivan Catheter [Urinary Catheter Removal] [RC] Care 05/07/17 08:08 Active Per Unit Routine HEMOGLOBIN/HEMATOCRIT,HH [HEME] DAILY Lab 05/08/17 06:00 Ordered HEMOGLOBIN/HEMATOCRIT,HH [HEME] DAILY Lab 05/09/17 06:00 Ordered Acetaminophen [Tylenol Extra Strength] Med 05/07/17 01:30 Active 1,000 mg PO Q6H Aspirin Med 05/07/17 09:00 Active 325 mg PO BID Celecoxib [CeleBREX] Med 05/07/17 09:00 Active 200 mg PO BID Docusate Sodium [Colace] Med 05/06/17 21:00 Active 100 mg PO BID Famotidine [Pepcid] Med 05/07/17 09:00 Active 40 mg PO DAILY Rosuvastatin [Crestor] Med 05/07/17 09:00 Active 10 mg PO DAILY Sodium Chloride 0.9% [Saline Flush] Med 05/06/17 18:55 Active 10 ml FLUSH ASDIRECTED PRN Sodium Chloride 0.9% [Saline Flush] Med 05/06/17 18:55 Active 2.5 ml FLUSH ASDIRECTED PRN Convert IV to Saline Lock [OM.PC] Routine Oth 05/06/17 18:55 Ordered Medication Orders Acetaminophen (Tylenol Extra Strength) 1,000 mg PO Q6H [facility] Last Admin: 05/07/17 07:57 Dose: 1,000 mg Admin: 05/07/17 00:31 Dose: 1,000 mg Al Hydroxide/Mg Hydroxide (Mag-Al Plus) 30 ml PO Q4H PRN PRN Reason: indigestion Aspirin (Aspirin) 325 mg PO BID [facility] Last Admin: 05/07/17 09:54 Dose: 325 mg Bisacodyl (Dulcolax) 10 mg RECTAL DAILY PRN PRN Reason: Constipation Celecoxib (Celebrex) 200 mg PO BID [facility] Last Admin: 05/07/17 09:54 Dose: 200 mg Diphenhydramine HCl (Benadryl) 25 - 50 mg PO Q6H PRN PRN Reason: Itching Docusate Sodium (Colace) 100 mg PO BID [facility] Last Admin: 05/07/17 09:55 Dose: 100 mg Admin: 05/06/17 22:03 Dose: 100 mg Famotidine (Pepcid) 40 mg PO DAILY [facility] Last Admin: 05/07/17 09:57 Dose: 40 mg Acetaminophen 1,000 mg/ Premix 100 mls @ 400 mls/hr IV ONARRIVE [facility] Last Admin: 05/06/17 07:30 Dose: 400 mls/hr Cefazolin Sodium/Dextrose 1 gm (/ Premix) 50 mls @ 100 mls/hr IV ONCALL [facility] Tranexamic Acid 4,000 mg/ (Sodium Chloride) 140 mls @ 600 mls/hr IV ASDIRECTED [facility] Ketorolac Tromethamine (Toradol) 30 mg IVPUSH ONARRIVE [facility] Ondansetron HCl (Zofran) 4 mg IV Q6HR PRN PRN Reason: NAUSEA/VOMITING Oxycodone HCl (Oxycodone) 5 - 10 mg PO Q4H PRN PRN Reason: Pain Estradiol 0.05 Mg 1 each PO ASDIRECTED [facility] Rosuvastatin Calcium (Crestor) 10 mg PO DAILY [facility] Last Admin: 05/07/17 09:57 Dose: 10 mg Scopolamine (Transderm-Scop) 1.5 mg TRDERM ONARRIVE [facility] Last Admin: 05/06/17 08:20 Dose: 1.5 mg Sodium Chloride (Saline Flush) 10 ml FLUSH ASDIRECTED PRN PRN Reason: Keep Vein Open Sodium Chloride (Saline Flush) 2.5 ml FLUSH ASDIRECTED PRN PRN Reason: Keep Vein Open Tramadol HCl (Ultram) 50 - 100 mg PO Q6H PRN PRN Reason: Pain Last Admin: 05/07/17 09:58 Dose: 50 mg - Plan Plan (Free Text/Narrative):: 1300 Patient seen and examined. Agree with the above note. Patient has been up with physical therapy today. She continues to progress. Her pain has been well- controlled. She did have some respiratory depression with the OxyContin and has since discontinued this. Her hemoglobin remained stable. She is currently on aspirin for DVT prophylaxis. Exam of bilateral knees shows dressings to be dry and intact. She has no calf tenderness. AT/EHL/gastroc 5/5. Sensation grossly intact. DP/PT pulses 2+. At this time the patient is doing well. She is planning on going home later today. I recommended she continue with her home exercises and outpatient physical therapy. She does have a follow-up appointment in 10-14 days for reevaluation. She is advised to return to clinic or call if she has questions or concerns before this time. [email or web address]
--- NOTE | 2017-05-07 08:58 | PCM.SN ---
- Free Text/Narrative Note: discharge summary #[id number]
[2017-05-07] MEDS ORDERED: Famotidine 20 MG Tab PO SCH (09:00)
[2017-05-07] MEDS ORDERED: Rosuvastatin 10 MG Tab PO SCH (09:00)
[2017-05-07] MEDS ORDERED: Aspirin 325 MG Tab PO SCH (09:00)
[2017-05-07] MEDS ORDERED: Celecoxib 100 MG Cap PO SCH (09:00)
[2017-05-07] MEDS: Docusate Sodium 100 MG Cap PO SCH (09:55)
--- NOTE | 2017-05-08 11:50 | DISCH ---
DATE OF DISCHARGE: 05/07/2017 PRIMARY CARE PHYSICIAN: Emi Craig ADMITTING DIAGNOSIS: Degenerative joint disease, bilateral knees, tricompartmental. OTHER MEDICAL DIAGNOSES: 1. Hypercholesterolemia. 2. Eczema. DISCHARGE DIAGNOSES: 1. Degenerative joint disease, bilateral knees, tricompartmental. 2. Acute posthemorrhagic anemia. 3. Hypercholesterolemia 4. Eczema BRIEF HISTORY: Bianca is a 56-year-old female who has had progressive complaints of bilateral knee pain. She has tried and failed conservative treatment. At that time, surgical treatment was recommended. On May 06, 2017, the patient underwent bilateral total knee arthroplasty using patient-specific instrumentation done by Dr. Ruth Bob. This was done under spinal anesthesia with sedation. Estimated blood loss was 100 mL. Tourniquet time was 37 minutes on the left and 42 minutes on the right. There were no known complications. Upon completion of the procedure, the patient was transferred to the PACU and subsequently to [facility] for postoperative care. HOSPITAL COURSE: Postoperatively, the patient did well. Her pain was controlled with minimal narcotic medications. She used Tylenol and tramadol for pain control. She received two doses of Ancef postoperatively for a total of 24 hours of antibiotic coverage. Physical therapy followed her through her hospital stay. Aspirin 325 mg twice daily was started on postoperative day #1 as DVT prophylaxis. Her vital signs remain stable. She has been afebrile. Her hemoglobin on the morning of May 07 was 11.3. She feels comfortable with discharge to home with family later today. DISCHARGE MEDICATIONS: 1. Oxycodone 5 mg. 2. Tylenol extra-strength 500 mg. 3. Tramadol 50 mg. 4. Celebrex 200 mg. 5. Colace 100 mg. 6. Aspirin 325 mg. DISCHARGE INSTRUCTIONS: 1. Follow up in clinic 10-14 days from the date of procedure. This appointment has been made for the patient. 2. Outpatient physical therapy 2-3 times per week for 4-6 weeks. 3. Polar Care to bilateral knees as needed. 4. ZACK hose to bilateral lower extremities, on in the morning, off in the evening. 5. No driving for 4-6 weeks after right total knee arthroplasty. She has also been advised she may not drive while taking narcotic pain medications or Ultram. 6. She is to change her dressings on Saturday, May 11, 2017. She should place a new Aquacel dressings and leave those in place until followup. It is okay to shower over the Aquacel dressings. Should she have questions or concerns prior to followup, she has been advised to return to clinic or call. For complete medication reconciliation and discharge instructions, please refer back to the patient's EHR. ANDRIY BATISTA /[id number] RAMÓN
== END 2017-05-07 16:40 | disposition home or self-care (01) | DRG 302 ==
LOC: MW.ICU 06:34 → MW.MS 17:25
PROVIDERS: ADMIT Orthopaedic Surgery; ATTEND Orthopaedic Surgery
PROC: 0SRD0J9 Replacement of Left Knee Joint with Synthetic Substitute, Cemented, Open Approach (ICD-10-PCS; principal; 2017-05-06)
PROC: 0SRC0J9 Replacement of Right Knee Joint with Synthetic Substitute, Cemented, Open Approach (ICD-10-PCS; 2017-05-06)
DX: M17.0 Bilateral primary osteoarthritis of knee (principal); E78.00 Pure hypercholesterolemia, unspecified; L30.9 Dermatitis, unspecified; Z79.899 Other long term (current) drug therapy
CPT/HCPCS: 01402; 36415; 735602650; 73560-50; 85014; 85018; 86850; 86900; 86901; 88305; 88311; 97110-GP; 97116-GP; 97161-GP; A9270-GY; C1713; C1776; J0171; J0690; J0735; J1885; J2250; J2405; J2704; J2795; J3010; J7050; J7120